=== PATIENT | female | born 2000 | race Caucasian/White ===

== ENCOUNTER 2023-06-09 18:28 | Emergency (ER) | payer OTHER, SELFPAY ==
[2023-06-09 18:28] VITALS: BMI 36.2
[2023-06-09 18:31] VITALS: BP 123/90
--- NOTE | 2023-06-09 20:06 | ED.GENMED ---
History of Present Illness
General
Chief Complaint: Headache
Source: patient
Exam Limitations: none
Time Seen by Provider: 06/09/23 19:48
Travel History
Have you had any contact with someone who has COVID-19?: No
Do you have any symptoms of coronavirus? Fever > 100 degrees, chills, cough, shortness of breath, sore throat, loss of taste or smell, muscle aches, or headache?: No
History of Present Illness
History of Present Illness:
See MDM
Past History
Past History
ED Past Medical History: Asthma and Other (Eczema)
ED Past Surgical History: Gynecological
Social History
Tobacco: Non-smoker
Alcohol: None
Phy Exam
Physical Exam
Physical Exam:
See MDM
Course
Orders/Labs/Results
Orders:
Orders
06/09/23 20:05
Butalb/Acetaminophen/Caffeine [Fioricet] 1 tab PO NOW STA
Ketorolac [Toradol] 30 mg IM NOW STA
Vital Signs
Initial and Last Documented VS:
Initial Vital Signs
Temp Pulse Resp BP Pulse Ox
98.3 F 92 20 123/90 100
06/09/23 18:31 06/09/23 18:31 06/09/23 18:31 06/09/23 18:31 06/09/23 18:31
Last Documented Vital Signs
Temp Pulse Resp BP Pulse Ox
98.3 F 71 18 120/86 100
06/09/23 18:31 06/09/23 20:16 06/09/23 20:16 06/09/23 20:16 06/09/23 20:16
MDM/Problems Addressed
Differential Diagnosis Includes:
HPI and MDM Narrative:
22-year-old female presenting for evaluation of headache and generalized fatigue and nausea. Patient recently started written Rinvoq for eczema. She denies prior history of headaches. After stopping the medicine a few days ago, patient states she
believes her headache was somewhat better but she is starting to get concerned.
On exam, she is very well-appearing nontoxic. There is no focal neurodeficits. Because of this, we discussed low utility in blood work and CT head. Patient is very comfortable with that plan. She is going to talk to her prescribing doctor about
possible adverse side effects versus stopping the medication altogether. Until then, will prescribe Fioricet until symptoms are improving. Patient understands return precautions.
Given her vague complaints, I did question possible . Patient states she recently had her menstrual cycle and is unconcerned about
Physical exam
General: Well appearing and non-toxic
HEENT: protecting airway. EOMI. Pupils equal reactive
Neck: supple. No meningismus
CV: No evidence of cyanosis. Regular rate and rhythm
Resp: No accessory muscle use. Lungs clear
Abd: Non-distended
Extremities: No deformities
Neuro: alert
Psych: Normal affect
Skin: Intact
Problems Addressed including Acute and Chronic Conditions affecting care:
1. Headache
Acuity: acute
Prognosis: stable
Details: Likely in the setting of adverse drug reaction. Patient will talk to her prescriber physician
Differential Diagnosis (but not limited to): Migraine, tension headache, adverse medication reaction
Testing considered: CT head but patient has no focal deficit and is extremely well-appearing
Drug therapy (if applicable): OTC meds, please see d/c instruction regarding Rx drugs
Amount and/or Complexity of Data Reviewed
Clinical info obtained from: Patient
External data reviewed: N/A
Labs I independently reviewed (but not limited to): N/A
Radiology: N/A
Pulse Ox: not hypoxic
EKG independently reviewed: N/A
Refrigerating Machine Operator: N/A
Critical Care: N/A
Risk of Complication:
Social Determinants of health: Good social support
Discussed with other providers: N/A
Escalation of Care includes Admit/Obs: After being observed in the Emergency Department, pt stable for discharge.
Occasional wrong word or 'sound a like' substitutions may have occurred due to the inherent limitations of voice recognition software. Read the chart carefully and recognize, using context, where substitutions have occurred.
*Critical Care Note
Total Time (30-74mins, 75-104mins- exclusive of procedures): Not Applicable
ED Attending Note
-
Portions of this chart may have been created with voice recognition software.� Occasional wrong word or��sound alike� substitutions may have occurred due to the inherent limitations of voice recognition software.
Discharge Plan
Departure
Patient Disposition: Home (Routine Discharge)
Date of Disposition: 06/09/23
Time of Disposition: 20:06
Patient with high blood pressure during this ER visit?: No
Discharge Problem:
Headache
Instructions: Migraines (DC)
Prescriptions:
New
yqbuexdqdd-kmicowonmcaxc-ynid [Fioricet] 50-300-40 mg capsule
1 cap PO TID PRN (Reason: headache) Qty: 14 0RF
No Action
amoxicillin 500 MG capsule
500 mg PO TID Qty: 20 0RF
prednisone 10 MG tablet
40 mg PO DAILY Qty: 12 0RF
Stand Alone Forms: Return to Work
Activity Restrictions/Additional Instructions:
As we discussed, your headache could be related to Rinvoq. Please talk to your doctor. Please take the medicine as needed for headaches. Please return for worsening symptoms.
Interventions
Interventions:
*Risk Screen - Suicide Last Done: 06/09/23 18:31
*Neglect/Abuse Screening Last Done: 06/09/23 18:35
[2023-06-09 20:16] VITALS: BP 120/86
[2023-06-09] MEDS: TORADOL 30 MG IM (20:17)
[2023-06-09] MEDS: FIORICET 1 TAB PO (20:18)
== END 2023-06-09 20:29 | disposition home or self-care (01) ==
LOC: EMR 18:28
PROVIDERS: EMERGENCY PHYSICIAN Student in an Organized Health Care Education/Training Program; FAMILY PHYSICIAN Family Medicine
DX: R51.9 Headache, unspecified (principal); L30.9 Dermatitis, unspecified; J45.909 Unspecified asthma, uncomplicated
CPT/HCPCS: 99283; 96372